=== PATIENT | male | born 1965 | race Caucasian/White ===

== ENCOUNTER 2019-07-08 17:01 | Inpatient (IN) ==
--- NOTE | 2019-07-08 17:26 | PROVIDER DOCUMENTATION ---
HPI-Respiratory General - General Chief Complaint: Shortness of Breath Stated Complaint: SOB Time Seen by Provider: 07/08/19 17:03 Source: patient, family Allergies/Adverse Reactions: Patient Allergies Allergy/AdvReac Type Severity Reaction Status Date / Time No Known Allergies Allergy Verified 01/19/17 04:01 Home Medications: Home Medication List Medication Instructions Recorded Confirmed Last Taken Type Amlodipine Besylate [Norvasc] 5 mg PO DAILY 04/06/14 07/08/19 01/18/17 History Lisinopril 5 mg PO DAILY 04/06/14 07/08/19 01/18/17 History Aspirin EC 81 mg PO DAILY 12/15/15 07/08/19 01/18/17 History Amiodarone [Cordarone] 200 mg PO DAILY 07/08/19 07/08/19 Unknown History Atorvastatin Calcium [Lipitor] 20 mg PO QHS 07/08/19 07/08/19 Unknown History Metoprolol [Lopressor] 50 mg PO BID 07/08/19 07/08/19 Unknown History Tramadol [Ultram] 50 mg PO QHS PRN 07/08/19 07/08/19 Unknown History - History of Present Illness-Resp Nature of Presenting Problem: 53 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 He reports recent 4 vessel CABG with porcine aortic valve replacement on 06/12/19 while in [place]. He reports he feels like " I cant take as deep a breath as normal". He denies CP, arm pain, fever, chills, cough, n/v/d, sweating. Quality of Pain: reports: none Severity in ED: reports: moderate Onset/Duration: reports: 1/2 hour ago Timing: reports: still present Context: reports: other (recent 4V CABG with porcine aortic valve replacement) Exposure: reports: unknown cause Cough Quality/Degree: reports: no cough Modifying Factors: worse with: exertion Associated Symptoms: reports: shortness of breath Similar Symptoms Previously?: No Recently seen or treated by another doctor?: Yes Review of Systems - Adult - REVIEW OF SYSTEMS - ADULT Constitutional: reports: no symptoms reported. denies: see HPI, chills, fever, fatique, night sweats, weight gain, weight loss, other Eyes: reports: no symptoms reported. denies: see HPI, discharge, dry eyes, decreased vision, blurred vision, double vision, eye pain, redness, other Ears, Nose, Mouth & Throat: reports: no symptoms reported. denies: see HPI, ear discharge, ear pain, hearing loss, tinnitus, epistaxis, sinus problem, nose guerline n, loose teeth, mouth/dental pain, mouth swelling, hoarseness, throat pain, throat swelling, other Cardiovascular: reports: see HPI, edema Respiratory: reports: see HPI, shortness of breath. denies: no symptoms reported, chronic cough, cough, dyspnea on exertion, excessive sputum production, hemoptysis, pleurisy, wheezing, other Gastrointestinal: reports: no symptoms reported. denies: see HPI, abdominal pain, hematemesis, constipation, diarrhea, difficulty swallowing, frequent heartburn, nausea, poor appetite, rectal bleeding, vomiting, other Genitourinary: reports: no symptoms reported. denies: see HPI, dysuria, discharge, frequency, flank pain, frequent UTI's, hematuria, hesitency, incontinence, urinary retention, urgency, other Musculoskeletal: reports: no symptoms reported. denies: see HPI, bone pain, back pain, frequent leg cramps, joint pain, joint swelling, muscle aches, muscle weakness, neck pain, other Integumentary: reports: no symptoms reported. denies: see HPI, hives, hair loss, itching, mole changes, nail changes, rash, skin sores/ulcer, skin thickening, other Neurological: reports: no symptoms reported. denies: see HPI, ataxia, dizziness/vertigo, headache/migraines, loss of balance, numbness, paresthesia, seizure, slurred speech, syncope, tremors, other Psychiatric: reports: no symptoms reported. denies: see HPI, anxiety, anti-depressant use, alcohol/drug dependence, depression, emotional problems, insomnia, panic attacks, suicidal thoughts, other Endocrine: reports: no symptoms reported. denies: see HPI, change in skin pigment, excessive sweating, goiter, cold intolerance, heat intolerance, increased hunger, increased thirst, polyuria, other Hematologic/Lymphatic: reports: no symptoms reported. denies: see HPI, blood clots, easy bruising, low blood count, lymphedema, prolonged bleeding, swollen lymph nodes, transfusions, other Allergic/Immunologic: reports: no symptoms reported. denies: see HPI, allergic reactions, allergic rhinitis, asthma, eczema, food allergy, frequent infections, hay fever, hives, positive PPD, urticaria, other Past History - Adult - PAST MEDICAL HISTORY-ADULT Review of Records: reports: Nursing Assessment Review, Social history reviewed & non-contributory. Major Childhood Illnesses: reports: denies history Cardiovascular: reports: HTN Respiratory: reports: sleep apnea Gastrointestinal: reports: GERD, other (hiatal hernia) Obstetrical/Gynecological: reports: denies history Genitourinary: reports: denies history Musculoskeletal: reports: denies history Neurological: reports: denies history Endocrine/Immune: reports: denies history Other Conditions: reports: other (gout) - PRIOR SURGERIES/PROCEDURES Surgical/Procedure History: reports: other (sacrum cycst) - IMMUNIZATION STATUS Childhood Immunizations: See Nurse Assessment Flu Vaccine: See Nurse Assessment - FAMILY HISTORY Family History: reviewed, not pertinent Physical Exam-General - PHYSICAL EXAM-ADULT Initial Vital Signs Reviewed: Yes - CONSTITUTIONAL General Appearance: alert, no apparent distress - EYES Eyes: PERRL/EOMI, pink conjunctivae - HEAD, EARS, NOSE, MOUTH & THROAT HENMT: normocephalic/atraumatic, moist mucous membranes, normal ENT inspection - NECK Neck: non-tender, full range of motion, supple. negative: carotid bruit - RESPIRATORY Respiratory: lungs clear, normal breath sounds, no pleuratic chest pain, no respiratory distress, no accessory muscle use, other (healing sternal incision present without redness drainage or S&S of infection). negative: accessory muscle use, wheezing - CARDIOVASCULAR Cardiovascular: normal peripheral pulses, regular rate, rhythm, no JVD, other (2/6 mumur heard best at the 2nd intercostal RSB). negative: no edema (+1 edema BLE), no murmur - GASTROINTESTINAL (ABDOMEN) Abdominal Exam: normal bowel sounds, non tender, soft, other (obese) - LYMPHATIC Lymphatic: no adenopathy - MUSCULOSKELETAL Back Exam: normal inspection, no CVA tenderness, no vertebral tenderness Extremity: normal range of motion, non-tender, normal gait, pedal edema (+1 BLE) Peripheral Pulses: radial (R): 2+, radial (L): 2+ - SKIN Integumentary: normal color, normal turgor, warm/dry - NEUROLOGIC Neurologic: grossly normal - PSYCHIATRIC Psych/Mental Status: normal mood/affect, oriented x 3 - HEART Score HEART Score: History: Moderately Suspicious HEART Score: ECG: Non-Specific Repolarization Disturbance/LBBB/PM HEART Score: Age: 45-65 Years HEART Score: Risk Factors for Atherosclerotic Disease: > or = 3 Risk Factors or History of Atherosclerotic Disease HEART Score: Troponin: < or = Normal Limit Total HEART Score:: 5 Progress - PLAN OF CARE/RESULTS Progress/Plan/Lab Results: Vital Signs - 8 hr 07/08/19 17:05 Temperature 98.0 F Pulse Rate 83 Respiratory Rate 22 Blood Pressure 145/73 O2 Sat by Pulse Oximetry 99 Laboratory Results - last 24 hr 07/08/19 07/08/19 07/08/19 17:41 17:41 17:41 WBC 6.37 RBC 3.90 L Hgb 10.1 L Hct 34.4 L MCV 88.2 MCH 25.9 L MCHC 29.4 L RDW Std Deviation 16.0 H Plt Count 285 MPV 10.5 H Immature Gran % (Auto) 0.3 Neut % (Auto) 69.1 Lymph % (Auto) 18.4 L [place] % (Auto) 9.1 Eos % (Auto) 2.5 Baso % (Auto) 0.6 Immature Gran # (Auto) 0.02 Neut # (Auto) 4.40 Lymph # (Auto) 1.17 L [place] # (Auto) 0.58 Eos # (Auto) 0.16 Baso # (Auto) 0.04 PT 15.7 INR 1.23 PTT (Actin FS) 31.4 Sodium 142 Potassium 4.5 Chloride 104 Carbon Dioxide 23 L Anion Gap 15 BUN 11 Creatinine 1.1 Estimated GFR/1.73 m2 > 60 BUN/Creatinine Ratio 10 Glucose 157 H Calculated Osmolality 286 Calcium 8.6 L Total Bilirubin 0.28 AST 19 ALT 18 Alkaline Phosphatase 120 Troponin T Win-A-Kvczbqoiosj Pept Total Protein 6.2 L Albumin 3.7 Globulin 2.5 Albumin/Globulin Ratio 1.5 07/08/19 07/08/19 17:41 17:41 WBC RBC Hgb Hct MCV MCH MCHC RDW Std Deviation Plt Count MPV Immature Gran % (Auto) Neut % (Auto) Lymph % (Auto) [place] % (Auto) Eos % (Auto) Baso % (Auto) Immature Gran # (Auto) Neut # (Auto) Lymph # (Auto) [place] # (Auto) Eos # (Auto) Baso # (Auto) PT INR PTT (Actin FS) Sodium Potassium Chloride Carbon Dioxide Anion Gap BUN Creatinine Estimated GFR/1.73 m2 BUN/Creatinine Ratio Glucose Calculated Osmolality Calcium Total Bilirubin AST ALT Alkaline Phosphatase Troponin T 0.031 Mcr-Q-Pbgypurplmg Pept 1089 H Total Protein Albumin Globulin Albumin/Globulin Ratio Orders Category Date Time Status cxr [CHEST-2 VIEWS] [RAD] Stat Exams 07/08/19 17:09 Completed CBC WITH ELECTRONIC DIFF [HEME] Stat Lab 07/08/19 17:41 Completed COMPREHENSIVE METABOLIC PANEL [CHEM] Stat Lab 07/08/19 17:41 Completed PROTIME WITH INR [COAG] Stat Lab 07/08/19 17:41 Completed PTT [COAG] Stat Lab 07/08/19 17:41 Completed TROPONIN T Stat Lab 07/08/19 17:41 Completed TROPONIN T Stat Lab 07/08/19 19:41 Uncollected bnp [PRO B-NATRIURETIC PEPTIDE] Stat Lab 07/08/19 17:41 Completed Furosemide [Lasix] Med 07/08/19 18:30 Discontinued 40 mg IV NOW ONE EKG [EKG] Stat Ther 07/08/19 17:08 Draft EKG [EKG] Stat Ther 07/08/19 19:41 Ordered 1825: d/w family new pulmonary edema. pt and family are in agreement with plan to admit for CP ruleout and diuresis. Will call cardiology to discuss and spoke with Esmer NAVARRETE hospitalist Result Diagrams: 07/08/19 17:41 07/08/19 17:41 - EKG 1 Time of EKG reading by physician:: 17:35 EKG Read and Signed by:: Rodolfo White EKG Interpretation (*Must complete 3 of following elements*): Abnormal Rate: 83 Rhythm: SR [place]: normal QRS: normal MI Interval: normal ST Wave: non-specific ST changes Prior EKG Comparison: changes noted (NONSPECEFIC ST CHANGES) - XRAY 1 XRAY Study: Chest Impression: Abnormal, See EMR Report (CHEST-2 VIEWS - 07/08/2019 INDICATION: SOB COMPARISON: 12/15/2015 FINDINGS: There are new sternotomy wires. There is cardiomegaly and mild pulmonary vascular congestion. There are trace pleural effusions. There are subtle increase interstitial markings in the lung bases which may represent mild pulmonary edema. IMPRESSION: Mild congestive heart failure. Electronically signed by Mathew Lima 07/08/2019 5:42 PM 07/08/191741 Interpreting Physician: Mathew Lima MD Dictated Date/Time: 07/08/191740) Comparison with other Films: changes noted - CONSULTS/PCP/HOSPITALIST Notification #1 *Consult/PCP/Hospitalist*: Dr. Liz paged at [phone] Time Discussed: 19:06 Consult Disposition: Admit (Admit with echo in AM, Serial Cardiac enzymes and 40mg lasix q12 hr) #2 Consult: Hospitalist paged at 1905 Departure - Departure Date of Disposition Decision: 07/08/19 Time of Disposition Decision: 19:12 DIAGNOSIS: CHF (congestive heart failure), Shortness of breath, Pulmonary edema Disposition: ADMITTED INPATIENT 09 Certified Medical Emergency: Emergent Condition: Fair Referrals and Follow-Ups: None,PCP [Primary Care Provider] - - Critical Care Note This patient required my direct & personal management of CC.: No Attestation - Physician/ TAMI Attestation Patient care was provided by Advanced Practice Provider:: Yes Advanced Practice Provider:: Bhumi White Advanced Practice Provider documentation review:: The Mid-level provider documentation, treatment plan and medical decision making was reviewed by the physician who agrees with all treatment and medical decision making by the [facility]. The physician spent face to face time with patient:: No Advanced Practice Provider documentation review:: Supervising physician onsite and consulted in the evaluation and care of this patient. The physician did not have a face to face encounter with the patient.
--- NOTE | 2019-07-08 17:44 | Diag Imaging Result Doc PS360 ---
CHEST-2 VIEWS - 07/08/2019 INDICATION: SOB COMPARISON: 12/15/2015 FINDINGS: There are new sternotomy wires. There is cardiomegaly and mild pulmonary vascular congestion. There are trace pleural effusions. There are subtle increase interstitial markings in the lung bases which may represent mild pulmonary edema. IMPRESSION: Mild congestive heart failure. Electronically signed by Mathew Lima 07/08/2019 5:42 PM
[2019-07-08 18:02] LABS: BASO# 0.04 X1000 (0.0-0.2); BASO% 0.6 % (0.0-0.8); EOS# 0.16 X1000 (0.0-0.7); EOS% 2.5 % (0.0-10.0); HEMATOCRIT 34.4 % (42.0-52.0); HEMOGLOBIN 10.1 g/dL (14.0-18.0); IMM GRAN# 0.02 X1000 (0.0-0.04); IMM GRAN% 0.3 % (0.0-0.5); LYMPH# 1.17 X1000 (1.2-3.4); LYMPH% 18.4 % (20.5-51.1); MCH 25.9 PG (27-31); MCHC 29.4 g/dL (33-37); MCV 88.2 FL (81-99); MONO# 0.58 X1000 (0.11-0.59); MONO% 9.1 % (1.7-9.3); MPV 10.5 FL (7.4-10.4); NEUT% 69.1 % (42.2-75.2); PLT 285 X1000 (130-400); WBC 6.37 X1000 (4.8-10.8)
[2019-07-08 18:16] LABS: AGAP 15; ALB/GLOB RATIO 1.5; ALBUMIN 3.7 g/dL (3.5-5.0); ALKALINE PHOSPHATASE 120 U/L (32-122); BUN 11 mg/dL (8-22); CALCIUM 8.6 mg/dL (8.8-10.2); CHLORIDE 104 mmol/L (98-107); COSMO 286; CREATININE 1.1 mg/dL (0.7-1.2); ESTIMATED GFR > 60; GLUCOSE 157 mg/dL (70-104); GOT 19 U/L (10-34); GPT 18 U/L (10-44); POTASSIUM 4.5 mmol/L (3.5-5.1); SODIUM 142 mmol/L (136-145); TCO2 23 mmol/L (25-35); TOTAL BILIRUBIN 0.28 mg/dL (0.20-1.00); TOTAL PROTEIN 6.2 g/dL (6.3-8.3)
--- NOTE | 2019-07-08 18:18 | EKG Report ---
Test Performed on : 07/08/2019 5:34:37 PM Test Reason : SOB Blood Pressure : / mmHG Vent. Rate : 083 BPM Atrial Rate : 083 BPM P-R Int : 184 ms QRS Dur : 106 ms QT Int : 398 ms P-R-T Axes : 032 031 087 degrees QTc Int : 467 ms Normal sinus rhythm. Cannot rule out Anterior infarct , age undetermined Abnormal ECG When compared with ECG of 19-JAN-2017 04:22, T wave inversion now evident in Anterior leads Unconfirmed Result
[2019-07-08 18:24] LABS: INR 1.23; PROTIME 15.7 Seconds (11.0-16.0); PTT 31.4 Seconds (22.3-41.8)
[2019-07-08] MEDS ORDERED: LASIX IV ONE (18:30)
[2019-07-09] MEDS: ULTRAM PO PRN ×2 (01:45→21:32)
--- NOTE | 2019-07-09 06:46 | HISTORY AND PHYSICAL ---
DATE: 07/09/2019 CHIEF COMPLAINT: Shortness of breath for about 2 to 3 days. HISTORY OF PRESENT ILLNESS: Mr. Tanvir Borden is a 53-year-old male, who has a history of coronary artery disease status post CABG on 06/12/2019. Also, he has a history of diabetes mellitus, hypertension, sleep apnea, gastroesophageal reflux disease. He presents to the hospital because of shortness of breath, which he describes as intermittent. It is made worse when he is supine, and he feels better when he is propped up on the bed. He denies any chest pain, wheezing. The patient reports having bilateral lower extremity swelling. When he presented to the hospital, his proBNP level was found to be raised at 1089. An x-ray of his chest showed mild CHF change. The patient was seen and evaluated in the ER. He has now been admitted to the floor for further management. PAST MEDICAL HISTORY: Coronary artery disease, borderline diabetes mellitus, hypertension, obstructive sleep apnea, gastroesophageal reflux disease, obesity and gout. PAST SURGICAL HISTORY: He has had CABG; this was done on 06/12/2019. Also cyst removal from anterior chest area. SOCIAL HISTORY: No history of cigarette smoking. No alcohol or drug use. ALLERGIES: No known drug allergies. FAMILY HISTORY: Positive for cancer, as well as coronary artery disease. MEDICATIONS: His medications include the followin. Amlodipine 5 mg p.o. once a day. 2. Lisinopril 5 mg p.o. daily. 3. Aspirin 81 mg p.o. daily. 4. Amiodarone 200 mg p.o. daily. 5. Atorvastatin 20 mg p.o. at bedtime. 6. Metoprolol 50 mg p.o. twice a day. 7. Tramadol 50 mg p.o. at bedtime p.r.n. REVIEW OF SYSTEMS: Constitutional: No fever. 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 Eyes: No blurry vision. ENT: Has some sinus problems. Cardiovascular: See history of present illness. Gastrointestinal: No nausea, vomiting, diarrhea. Respiratory: Has cough. : No dysuria. Dermatology: No skin lesions. Musculoskeletal: Has joint pains. Endocrinology: Has borderline diabetes, but no thyroid disease. Hematology: No bleeding problems. Psychiatric: No anxiety or depression. Allergy: No symptoms suggestive of allergic rhinitis. EXAMINATION: Vital Signs Are As Follows: Temperature 98.4 degrees, pulse 73, respirations 20, blood pressure is 135/75, oxygen saturation 100%. HEENT: Head is atraumatic, normocephalic. He is anicteric. Extraocular movements intact. No oral lesions. Neck: No lymphadenopathy or thyromegaly. Cardiovascular: S1, S2. No gallops, rubs, or murmurs. Respiratory system: Has evidence of good air entry bilaterally. The patient does have a midline surgical wound obviously from recent CABG. Abdomen: Soft, nontender. No masses felt. It is obese. Extremities: Patient does have 1+ edema in both lower extremities. Central nervous system: No obvious focal deficits noted. LABORATORY DATA: WBC is 6.37, hematocrit is 34.4, with a platelet count of 285. INR is 1.23. Sodium is 142, potassium 4.5, chloride is 104, bicarbonate 23. BUN is 11, creatinine is 1.1, glucose 157. ProBNP 1089 IMAGING STUDIES: Chest x-ray shows mild congestive heart failure. EKG shows a normal sinus rhythm with nonspecific ST changes. ASSESSMENT AND PLAN: 1. Acute congestive heart failure. We will maintain patient on diuretics. Monitor intakes and outputs, as well as daily weights. Obtain two-dimensional echocardiogram of the heart. We will maintain patient on HANNA inhibitor, as well as beta benedicto. The patient will need congestive heart failure education. 2. Diabetes mellitus. Monitor blood sugar levels. Place patient on sliding scale insulin. Check hemoglobin A1c level. 3. Hypertension. Continue current antihypertensive regimen. 4. Obstructive sleep apnea. The patient can use CPAP machine at night. 5. Gastroesophageal reflux disease. Maintain patient on proton pump inhibitor. 6. Anemia. Will check iron studies, B 12 as well as folate level. Stool for occult blood. 7. Deep vein thrombosis prophylaxis. Lovenox. 8. Gastrointestinal prophylaxis. Proton pump inhibitor. cc: Satya Seth MD
[2019-07-09] MEDS: HUMALOG SUBQ SCH ×4 (06:53→21:31)
[2019-07-09 07:58] LABS: AGAP 12; BUN 11 mg/dL (8-22); CALCIUM 8.8 mg/dL (8.8-10.2); CHLORIDE 101 mmol/L (98-107); CHOLESTEROL 96 mg/dL (0-200); COSMO 280; CREATININE 0.9 mg/dL (0.7-1.2); ESTIMATED GFR > 60; GLUCOSE 90 mg/dL (70-104); HDL 46 mg/dL (35-55); IRON SATURATION 10 %; MAGNESIUM 2.1 mg/dL (1.5-2.7); PHOSPHORUS 3.9 mg/dL (2.7-4.5); POTASSIUM 4.1 mmol/L (3.5-5.1); SODIUM 141 mmol/L (136-145); TCO2 28 mmol/L (25-35); TIBC 264 ug/dL; TOTAL IRON 27 ug/dL (53-167); TRIGLYCERIDES 107 mg/dL (39-160); UNBOUND IRON 237 ug/dL (112-346); VLDL 21 mg/dL
[2019-07-09 07:59] LABS: LDL 29 mg/dL
[2019-07-09 08:15] LABS: FERRITIN 189 ng/mL (30-400)
[2019-07-09 08:54] LABS: BASO# 0.04 X1000 (0.0-0.2); BASO% 0.5 % (0.0-0.8); EOS# 0.19 X1000 (0.0-0.7); EOS% 2.6 % (0.0-10.0); HEMATOCRIT 36.5 % (42.0-52.0); HEMOGLOBIN 10.5 g/dL (14.0-18.0); LYMPH# 1.21 X1000 (1.2-3.4); LYMPH% 16.6 % (20.5-51.1); MCH 25.5 PG (27-31); MCHC 28.8 g/dL (33-37); MCV 88.6 FL (81-99); MONO# 0.64 X1000 (0.11-0.59); MONO% 8.8 % (1.7-9.3); MPV 10.8 FL (7.4-10.4); NEUT# 5.21 X1000 (1.4-6.5); NEUT% 71.5 % (42.2-75.2); PLT 323 X1000 (130-400); RBC 4.12 XMIL (4.7-6.1); RDW 16.2 % (11.5-14.5); WBC 7.29 X1000 (4.8-10.8)
[2019-07-09] MEDS ORDERED: LOVENOX SUBQ SCH (09:00)
[2019-07-09] MEDS: LOVENOX SUBQ SCH (09:15)
[2019-07-09] MEDS: PRILOSEC PO SCH (09:15)
[2019-07-09] MEDS: PRINIVIL PO SCH (09:16)
[2019-07-09] MEDS: LOPRESSOR PO SCH ×2 (09:16→21:31)
[2019-07-09] MEDS: NORVASC PO SCH (09:16)
[2019-07-09] MEDS: ASPIRIN EC PO SCH (09:16)
[2019-07-09] MEDS: LASIX IV SCH ×2 (09:16→21:31)
[2019-07-09] MEDS: CORDARONE PO SCH (09:16)
[2019-07-09 10:26] LABS: BANDS 1 % (0-1); HYPOCHROM 2+; LYMPHS 20 % (21-51); MONO 3 % (1-9); SEGS 76 % (42-75)
[2019-07-09] MEDS: ANUSOL-HC CREAM PR SCH ×2 (13:45→21:31)
--- NOTE | 2019-07-09 14:24 | ECHO REPORT ---
ORDER DATE: 07/08/2019 INTERPRETING PHYSICIAN: Mak Liz MD. ECHOCARDIOGRAPHIC MEASUREMENTS: Technically suboptimal study. Very poor acoustic window. Measurements could not be accurately obtained. FINDINGS: 1. Aortic valve. Bioprosthetic valve in the aortic position was stable. 2. Pulmonic valve not well visualized. 3. Mitral valve was normal. 4. Tricuspid valve was normal. Peak velocity across the tricuspid valve was 2.5 m/sec. Pulmonary artery systolic pressure of 35 mmHg. 5. Peak velocity across the aortic valve was 2.9 m/sec with a mean gradient of 24 mmHg in keeping with bioprosthetic valve. There is no aortic regurgitation. 6. There is mild mitral regurgitation. 7. Optison was used to assess left ventricular systolic function. Normal left ventricular cavity size. Concentric left ventricular hypertrophy. Estimated ejection fraction of 65%. 8. There is no pericardial effusion or obvious intracardiac mass or thrombus. cc: MD Satya Maravilla MD
[2019-07-09] MEDS ORDERED: VENOFER 200 MG in NS 100 ML IV ONE (16:06)
[2019-07-09] MEDS: TYLENOL PO PRN (16:31)
--- NOTE | 2019-07-09 16:43 | PROGRESS NOTE ---
DATE: 07/09/2019 SUBJECTIVE: This morning, Mr. Borden refers to be doing a lot better. He is not on any oxygen. He said his breathing has significantly improved, saturating about 100% on room air. OBJECTIVE: General: Mr. Aguayo is a 53-year-old morbidly obese, gentleman. He is in bed, no distress. His BMI is 42.9. Chest: Good air entry bilaterally, I did not hear any crackles. Neck: Supple. There was no JVD. Cardiovascular: Regular rate and rhythm. No murmurs. Abdomen: Soft, distended but nontender. Bowel sounds present. Extremities: 1+ pedal edema. There are some chronic changes on the left lower extremity from stasis dermatopathy. LABORATORY STUDIES: CBC shows a normocytic anemia with hemoglobin of 10.5. WBC and platelet count is normal. Chemistry is within normal range. IMAGING STUDIES: Show a chest x-ray that revealed mild congestive heart failure. Echocardiogram shows an ejection fraction of 65%. There is a bioprosthetic aortic valve in good position with a velocity across the valve of 2.9. The mean gradient is 24. ASSESSMENT: 1. Dyspnea on presentation secondary to congestive heart failure improved. 2. History of coronary arthrosclerosis, status post coronary artery bypass graft. 3. Postoperative atrial fibrillation. 4. Bioprosthetic aortic valve replacement. 5. Morbid obesity with BMI of 42.9. 6. Severe obstructive sleep apnea. Patient is on CPAP at home. 7. Iron deficiency and folate deficiency. We will start replacement. 8. Mild left lower extremity swelling from stasis dermatopathy. cc: Chace Magallanes MD
--- NOTE | 2019-07-09 18:49 | CARDIOLOGY CONSULTATION ---
DATE: 07/09/2019 CHIEF COMPLAINT ON PRESENTATION: Shortness of breath for around two to three days. HISTORY OF PRESENT ILLNESS: Mr. Borden is a 53-year-old male with a history of coronary artery disease with bypass performed in late May 2019, in [place]. He was discharged home after around two weeks in [place], and sounds like he has had a relatively high sodium intake during that discharge time. In addition, he was discharged on 10 days of Lasix, having completed that course of medication last week on Saturday. He reports over the last two to three days, having issues with what sounds like orthopnea as well as increasing shortness of breath that became much worse yesterday evening. He denies any overt chest pain. He reports compliance with his medications otherwise. PAST MEDICAL HISTORY: 1. Significant for coronary artery disease with coronary artery bypass grafting. He had a coronary bypass performed on June 12. This was a 4-vessel procedure with BOB to the LAD, vein graft to an obtuse marginal, vein graft to a diagonal, and a vein graft to a PDA. 2. Aortic stenosis that sounds to have been moderate in nature. The echocardiogram suggested [id number] stenosis with a mean gradient of 27. Valve areas were anywhere from 1.8 to 2.1 on the echo done prior to the bypass. He subsequently had a 25 mm Avalus pericardial valve placed. 3. Morbid obesity. 4. Hypertension. 5. Glucose intolerance. 6. Obstructive sleep apnea. He is compliant with his CPAP. 7. Reflux disease. 8. Gout. SOCIAL HISTORY: He is . 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 No tobacco use. FAMILY HISTORY: Significant for some type of cancer as well as coronary artery disease. REVIEW OF SYSTEMS: A 10-system review of systems is negative, except for those things mentioned in HPI. PHYSICAL EXAMINATION: He is afebrile. Most recent temperature was 98.6 degrees. Heart rate 77, blood pressure 139/66.General: He is in no acute distress. HEENT: Oropharynx is moist. Poor dentition. Eye examination, pink conjunctivae, white sclerae. Neck: No obvious thyromegaly or thyroid tenderness. Cardiovascular: He sounds to be in a regular rate and rhythm. He has distant heart sounds. He has a well-healed midline sternotomy. He has mild asymmetric edema in the left lower extremity of around 1+. Extremities: Both extremities are warm and well perfused. Chest: Sounds clear with distant breath sounds. He has no increased work of breathing. Abdomen: Soft, nontender, nondistended. He has no obvious organomegaly. Skin: Warm and dry throughout without any rashes. Neurological: Moving all extremities well. He has no lateralizing deficits. PERTINENT DATA: His EKG reviewed by me, shows sinus rhythm with nonspecific ST-T changes. His echocardiogram showed a mean gradient of 24 across the bioprosthetic valve, EF 65%. His laboratory data demonstrated white count of 7.2, hematocrit 36, platelet count is 323,000. He did have a trace bandemia. Sodium is 141, potassium is 4.1, BUN 11, creatinine 0.9. His LDL is 29, his HDL is 46. His proBNP yesterday was 1089. His cardiac enzymes are negative. ASSESSMENT: Mr. Borden is a 53-year-old gentleman with bypass roughly one month ago, who presented for evaluation of shortness of breath. Findings appear consistent with an exacerbation of diastolic heart failure likely secondary to high sodium intake as well as recent discontinuation of Lasix. PLAN: At this point, I would recommend continuation of his diuretics. We will recheck labs in the morning. We will likely transition him over to oral Lasix at home. He has an appointment already set up with Dr. Naqvi in [place], and he can be seen by him for further evaluation and hopefully setting him up with cardiac rehab. He was noted to have aortic stenosis at the time of the bypass. He had a bioprosthetic aortic valve placed. This study is challenging here and he will likely need a reassessment of the aortic valve in the near future given the mean gradient that was identified across the valve. Given his body habitus, there may be a component of prosthetic patient mismatch. He had postoperative atrial fibrillation during the course of the examination and continues on his amiodarone. We will continue for the time being. He is not on anticoagulation. He is on aspirin. He was not discharged on anticoagulation at the time of his bypass. Hopefully, he can be discharged in the next 24 to 48 hours. He seems to have diuresed aggressively based on his report. We do not have a significant degree of input and output data. cc: Dean Gomez MD
[2019-07-09] MEDS ORDERED: LIPITOR PO SCH (21:00)
[2019-07-10] MEDS: PRILOSEC PO SCH (06:26)
[2019-07-10] MEDS: HUMALOG SUBQ SCH ×2 (06:27→10:49)
[2019-07-10] MEDS: TYLENOL PO PRN (06:31)
[2019-07-10 07:05] VITALS: BP 107/49
[2019-07-10 07:46] LABS: HEMOGLOBIN A1C 4.7 % (4.8-6.0)
[2019-07-10 08:09] LABS: AGAP 9; BUN 11 mg/dL (8-22); CALCIUM 9.1 mg/dL (8.8-10.2); CHLORIDE 97 mmol/L (98-107); COSMO 276; ESTIMATED GFR > 60; GLUCOSE 109 mg/dL (70-104); MAGNESIUM 2.1 mg/dL (1.5-2.7); POTASSIUM 4.3 mmol/L (3.5-5.1); SODIUM 138 mmol/L (136-145); TCO2 32 mmol/L (25-35)
[2019-07-10] MEDS ORDERED: FOLIC ACID PO SCH (09:00)
--- NOTE | 2019-07-10 09:39 | Diag Imaging Result Doc PS360 ---
EXAM: CHEST-2 VIEWS HISTORY: hypoxia TECHNIQUE: Two views COMPARISON: 07/08/2019 FINDINGS: The lungs are well expanded. There are small pleural effusions. The heart is mildly enlarged. There are sternal wires. No pulmonary edema. No consolidation. IMPRESSION: Cardiomegaly with small pleural effusions Electronically signed by Janes Greer 07/10/2019 9:37 AM
[2019-07-10] MEDS: LASIX IV SCH (09:48)
[2019-07-10] MEDS: PRINIVIL PO SCH (09:48)
[2019-07-10] MEDS: LOPRESSOR PO SCH (09:48)
[2019-07-10] MEDS: ASPIRIN EC PO SCH (09:48)
[2019-07-10] MEDS: NORVASC PO SCH (09:48)
[2019-07-10] MEDS: LOVENOX SUBQ SCH (09:49)
[2019-07-10] MEDS: CORDARONE PO SCH (09:49)
[2019-07-10] MEDS: ANUSOL-HC CREAM PR SCH (09:49)
--- NOTE | 2019-07-10 17:00 | DISCHARGE SUMMARY ---
ADMISSION DATE: 07/08/2019 DISCHARGE DATE: 07/10/2019 DISPOSITION: Home. FOLLOWUP: 1. Will be Torey Fair. 2. Dr. Gautam Naqvi. 3. Dr. Dean Gomez. CONSULTATION: Cardiology was consulted. Patient was seen by Dr. Dean Gomez. INVASIVE PROCEDURES: None. IMAGING STUDIES OF SIGNIFICANT: A chest x-ray did show mild congestive heart failure on admission. An echocardiogram shows an ejection fraction of 65% of the 25 mmHg of the mean gradient across the aortic valve which is a bioprosthetic valve, pro B dropped from 1089 to 545. ADMISSION DIAGNOSIS: 1. Acute congestive heart failure. 2. Diabetes mellitus. 3. Hypertension. 4. Obstructive sleep apnea. DIAGNOSIS AT THE TIME OF DISCHARGE: 1. Dyspnea on admission due to congestive heart failure. 2. History of coronary artery sclerosis status post coronary artery bypass graft. 3. Postoperative atrial fibrillation. 4. Bioprosthetic aortic valve replacement. 5. Morbid obesity with body mass index of 42.9. 6. Severe obstructive sleep apnea patient uses CPAP at home. 7. Iron and folate deficiencies. 8. Left lower extremity swelling from chronic venous insufficiency. 9. Diabetes mellitus. 10. Hypertension. DISCHARGE MEDICATIONS: 1. Lisinopril 5 mg p.o. at bedtime. 2. Amlodipine 5 mg p.o. at bedtime. 3. Aspirin 81 mg p.o. daily. 4. Atorvastatin 20 mg p.o. at bedtime. 5. Motrin 600 mg p.o. q.6. 6. Amiodarone 200 mg p.o. daily. 7. Metoprolol 50 mg b.i.d. 8. Tramadol 50 mg p.o. at bedtime. 9. Tamsulosin 0.4 p.o. at bedtime. 10. Omeprazole 40 mg p.o. at bedtime. NEW MEDICATIONS PRESCRIBED: 1. Folic acid 1 mg p.o. daily. 2. Furosemide 40 mg p.o. daily. PRESENTING COMPLAINT: Shortness of breath. HISTORY OF PRESENT COMPLAINT: Mr. Borden is a 53-year-old gentleman who had CABG almost about a month ago in [place], comes in to the emergency room because of acute onset of shortness of breath. The patient was evaluated including a chest x-ray which reveals congestive signs. Pro B had gone up to 1089. He was admitted for acute congestive heart failure. HOSPITAL COURSE: Mr. Borden was admitted to the medical floor was started on IV diuretic therapy. He did diurese very adequately during the short hospital course, he became negative balance for a total of 815. His symptoms got remarkably improved, a pro B repeat came the back to 545. Patient had an echocardiogram and was evaluated by Cardiology, this morning Mr. Borden refers to feel much much better completely asymptomatic, we think he is okay for discharge. He is going to follow up with his primary care as well as his certified travel counselor out of town. Also he has been evaluated by Cardiology and they are in agreement for him to be discharged. All the discharge instructions have been discussed with him. We have notify Mr. Borden that we started him on low-dose diuretic therapy at least for the time being until he gets to see his certified travel counselor/primary care. TIME SPENT: 38 minutes. cc: Chace Magallanes MD MTDD
--- NOTE | 2019-07-11 12:23 | Extremity Venous Study ---
PROCEDURE NAME: Venous U/S Bilateral Legs - 07/09/2019 REFERRING PHYSICIAN: Vera. INTERPRETING PHYSICIAN: Dr. White. ROCK CONTRACTOR: Eris. The patient has had coronary bypass and valve replacement in late May and left greater saphenous vein was harvested. Bilateral lower extremity venous images accomplished. The common femoral, superficial femoral, deep femoral, popliteal, posterior tibial, peroneal, and greater saphenous vein is imaged except on the left where it was harvested. The Doppler is used to evaluate the veins for spontaneity, phasicity, respiratory excursion, distal augmentation. All veins are compressible. No intraluminal clot is seen. Reflux noted on the left common femoral vein. INTERPRETATION: No evidence of deep or superficial venous thrombosis in either lower extremity veins identified. The left greater saphenous vein has been harvested. Some reflux noted in the left common femoral vein. cc: MD Jojo Kathleen PA
== END 2019-07-10 15:08 | disposition home or self-care (01) ==
LOC: ED 17:01 → SUATTDRO 22:27 → 3N 22:27
PROVIDERS: ATTEND Internal Medicine

== ENCOUNTER 2019-07-24 22:07 | Observation (INO) ==
--- NOTE | 2019-07-24 23:23 | EKG Report ---
Test Performed on : 07/24/2019 10:18:47 PM Test Reason : SOB Blood Pressure : / mmHG Vent. Rate : 084 BPM Atrial Rate : 084 BPM P-R Int : 188 ms QRS Dur : 110 ms QT Int : 378 ms P-R-T Axes : 030 029 065 degrees QTc Int : 446 ms Normal sinus rhythm. Cannot rule out Anterior infarct (cited on or before 08-JUL-2019) Abnormal ECG When compared with ECG of 12-JUL-2019 11:55, (Unconfirmed) No significant change was found Unconfirmed Result
[2019-07-25] MEDS ORDERED: ASPIRIN PO ONE (00:12)
[2019-07-25 00:32] LABS: BASO# 0.05 X1000 (0.0-0.2); BASO% 0.5 % (0.0-0.8); EOS# 0.12 X1000 (0.0-0.7); EOS% 1.3 % (0.0-10.0); HEMATOCRIT 39.8 % (42.0-52.0); IMM GRAN# 0.02 X1000 (0.0-0.04); IMM GRAN% 0.2 % (0.0-0.5); LYMPH# 1.69 X1000 (1.2-3.4); LYMPH% 17.9 % (20.5-51.1); MCH 25.4 PG (27-31); MCHC 30.2 g/dL (33-37); MCV 84.1 FL (81-99); MONO# 0.71 X1000 (0.11-0.59); MONO% 7.5 % (1.7-9.3); MPV 11.6 FL (7.4-10.4); NEUT# 6.83 X1000 (1.4-6.5); NEUT% 72.6 % (42.2-75.2); PLT 338 X1000 (130-400); RBC 4.73 XMIL (4.7-6.1); RDW 15.5 % (11.5-14.5); WBC 9.42 X1000 (4.8-10.8)
[2019-07-25 00:41] LABS: INR 1.2; PROTIME 15.4 Seconds (11.0-16.0)
[2019-07-25 00:42] LABS: PTT 31.6 Seconds (22.3-41.8)
--- NOTE | 2019-07-25 00:43 | PROVIDER DOCUMENTATION ---
HPI-General Adult - General Chief Complaint: Shortness of Breath Stated Complaint: TROUBLE BREATHING Time Seen by Provider: 07/25/19 00:21 Source: patient, family Allergies/Adverse Reactions: Patient Allergies Allergy/AdvReac Type Severity Reaction Status Date / Time No Known Allergies Allergy Verified 01/19/17 04:01 Home Medications: Home Medication List Medication Instructions Recorded Confirmed Last Taken Type Lisinopril 5 mg PO HS 04/06/14 07/24/19 01/18/17 History Aspirin EC 81 mg PO DAILY 12/15/15 07/24/19 01/18/17 History Amiodarone [Cordarone] 200 mg PO DAILY 07/08/19 07/24/19 Unknown History Atorvastatin Calcium [Lipitor] 20 mg PO QHS 07/08/19 07/24/19 Unknown History Ibuprofen [Motrin] 600 mg PO Q6H PRN PRN 07/08/19 07/24/19 Unknown History Metoprolol [Lopressor] 50 mg PO BID 07/08/19 07/24/19 Unknown History Tamsulosin [Flomax] 0.4 mg PO QHS 07/08/19 07/24/19 07/07/19 21:00 History Tramadol [Ultram] 50 mg PO QHS PRN 07/08/19 07/24/19 Unknown History Folic Acid 1 mg PO DAILY #120 tab 07/10/19 07/24/19 Unknown Rx Furosemide [Lasix] 40 mg PO DAILY #30 tab 07/10/19 07/24/19 Unknown Rx Esomeprazole [Nexium] 40 mg PO DAILY 07/12/19 07/24/19 Unknown History Testosterone Cypionate 60 mg IM DIRECTED 07/12/19 07/24/19 Unknown History - History of Present Illness -Gen Adult Nature of Presenting Problems: 53yo male presents with CC of shortness of breath. The patient reports that since yesterday he has been having difficulty with breathing. The patient reports that his symptoms are greatly worsened by laying flat, and the patient has been having to sleep in a recliner. The patient reports that he has been taking his lasix, and he denies any swelling, and reports that his weights have been consistent. The patient denies fevers. The patient does report a cough. The patient reports some chest wall tenderness due to recent open heart surgery last month. Onset/Duration: reports: other (yesterday) Timing: reports: still present Context/Activities at Onset: reports: none, other (currently taking lasix and monitoring sodium intake) Modifying Factors: worse with: lying down Associated Symptoms: reports: chest pain (mild pain with palpation or cough), cough, shortness of breath. denies: fever/chills, swelling/mass in abdomen Review of Systems - Adult - REVIEW OF SYSTEMS - ADULT Constitutional: reports: no symptoms reported. denies: fever Eyes: reports: no symptoms reported. denies: eye pain Ears, Nose, Mouth & Throat: reports: no symptoms reported. denies: throat pain Cardiovascular: reports: chest pain, orthopnea Respiratory: reports: cough, shortness of breath Gastrointestinal: reports: no symptoms reported. denies: abdominal pain Genitourinary: reports: no symptoms reported. denies: flank pain Musculoskeletal: reports: no symptoms reported Integumentary: reports: no symptoms reported Neurological: reports: no symptoms reported. denies: headache/migraines Psychiatric: reports: no symptoms reported Endocrine: reports: no symptoms reported Hematologic/Lymphatic: reports: no symptoms reported Allergic/Immunologic: reports: no symptoms reported Past History - Adult - PAST MEDICAL HISTORY-ADULT Review of Records: reports: Old Records Reviewed Major Childhood Illnesses: reports: denies history Cardiovascular: reports: cardiac disease, CAD, HTN, heart valve problem Respiratory: reports: sleep apnea Gastrointestinal: reports: GERD, other (hiatal hernia) Obstetrical/Gynecological: reports: denies history Genitourinary: reports: denies history Musculoskeletal: reports: denies history Neurological: reports: denies history Endocrine/Immune: reports: denies history Other Conditions: reports: other (gout) - PRIOR SURGERIES/PROCEDURES Surgical/Procedure History: reports: other (sacrum cycst) - IMMUNIZATION STATUS Childhood Immunizations: See Nurse Assessment Flu Vaccine: See Nurse Assessment - FAMILY HISTORY Family History: reviewed, not pertinent Physical Exam-General - PHYSICAL EXAM-ADULT Initial Vital Signs Reviewed: Yes - CONSTITUTIONAL General Appearance: appears well, alert, no apparent distress - EYES Eyes: negative: conjuctival exudate, photophobia, sclera injected - HEAD, EARS, NOSE, MOUTH & THROAT HENMT: normocephalic/atraumatic, moist mucous membranes, pharynx normal. negative: hearing deficit, pharyngeal erythema - NECK Neck: non-tender, supple - RESPIRATORY Respiratory: no respiratory distress, rales (mild LLL) - CARDIOVASCULAR Cardiovascular: regular rate, rhythm, systolic murmur. negative: no edema (trace bilateral LE edema) - GASTROINTESTINAL (ABDOMEN) Abdominal Exam: non tender, soft, distended (mild) - MUSCULOSKELETAL Extremity: non-tender, swelling (trace) - SKIN Integumentary: normal color, warm/dry - NEUROLOGIC Neurologic: grossly normal - PSYCHIATRIC Psych/Mental Status: normal mood/affect, normal thought content, normal thought process Progress - PLAN OF CARE/RESULTS Progress/Plan/Lab Results: Vital Signs - 8 hr 07/24/19 22:19 Temperature 97.8 F Pulse Rate 82 Respiratory Rate 18 Blood Pressure 144/75 O2 Sat by Pulse Oximetry 96 Laboratory Results - last 24 hr 07/24/19 22:37 WBC 9.42 RBC 4.73 Hgb 12.0 L Hct 39.8 L MCV 84.1 MCH 25.4 L MCHC 30.2 L RDW Std Deviation 15.5 H Plt Count 338 MPV 11.6 H Immature Gran % (Auto) 0.2 Neut % (Auto) 72.6 Lymph % (Auto) 17.9 L [place] % (Auto) 7.5 Eos % (Auto) 1.3 Baso % (Auto) 0.5 Immature Gran # (Auto) 0.02 Neut # (Auto) 6.83 H Lymph # (Auto) 1.69 [place] # (Auto) 0.71 H Eos # (Auto) 0.12 Baso # (Auto) 0.05 Orders Category Date Time Status Cardiac Monitoring DIRECTED Care 07/25/19 00:13 Active Oxygen Therapy- ED Nursing DIRECTED Care 07/25/19 00:13 Active Saline Loc NOW Care 07/25/19 00:13 Active CHEST-2 VIEWS [RAD] Stat Exams 07/25/19 00:13 Ordered CBC WITH ELECTRONIC DIFF [HEME] Stat Lab 07/25/19 00:14 Completed CK PROFILE [SP CHEM] Stat Lab 07/25/19 00:14 Received COMPREHENSIVE METABOLIC PANEL [CHEM] Stat Lab 07/25/19 00:14 Received PRO B-NATRIURETIC PEPTIDE Stat Lab 07/25/19 00:14 Received PROTIME WITH INR [COAG] Stat Lab 07/25/19 00:14 Received PTT [COAG] Stat Lab 07/25/19 00:14 Received TROPONIN T HIGH SENSITIVITY Stat Lab 07/25/19 00:14 Received Aspirin Med 07/25/19 00:12 Discontinued 325 mg PO NOW ONE CP/SOB/Palp >45 yrs of Age Stat Oth 07/25/19 00:12 Ordered EKG [EKG] Stat Ther 07/24/19 22:10 Draft Result Diagrams: 07/24/19 22:37 07/24/19 22:37 - REASSESSMENT Reassessment #1 Status: other (Patient labs with BNP only at ~400. CXR with small pleural effusion. Troponin mildly elevated at 28. The patient reports that his positional shortness of breath is significant. Given recent CABG (5wks) as well as mildly elevated troponin, will plan for admission with repeat ECHO to ensure not pericardial effusion and to trend cardiac enzymes. Hospitalist team paged.) Reassessment #2 Status: other (Discussed with the hospitalist team who will see the patient.) Departure - Departure Date of Disposition Decision: 07/25/19 Time of Disposition Decision: 02:21 DIAGNOSIS: Acute dyspnea Chest pain Qualifiers: Chest pain type: unspecified Qualified Code(s): R07.9 - Chest pain, unspecified Disposition: ADMITTED INPATIENT 09 Certified Medical Emergency: Emergent Condition: Fair Referrals and Follow-Ups: Torey Fair [Primary Care Provider] - - Critical Care Note This patient required my direct & personal management of CC.: No Attestation - Physician/ TAMI Attestation Patient care was provided by Advanced Practice Provider:: No The physician spent face to face time with patient:: Yes Advanced Practice Provider documentation review:: Supervising physician onsite and consulted in the evaluation and care of this patient. The physician did have a face to face encounter with the patient.
[2019-07-25 00:58] LABS: AGAP 18; ALB/GLOB RATIO 1.4; ALBUMIN 4.4 g/dL (3.5-5.0); ALKALINE PHOSPHATASE 115 U/L (32-122); BUN 17 mg/dL (8-22); CALCIUM 9.2 mg/dL (8.8-10.2); CHLORIDE 100 mmol/L (98-107); CK PROFILE 144 U/L (24-204); COSMO 285; CREATININE 1.1 mg/dL (0.7-1.2); ESTIMATED GFR > 60; GLUCOSE 109 mg/dL (70-104); GOT 23 U/L (10-34); GPT 18 U/L (10-44); POTASSIUM 4.5 mmol/L (3.5-5.1); SODIUM 142 mmol/L (136-145); TCO2 24 mmol/L (25-35); TOTAL BILIRUBIN 0.27 mg/dL (0.20-1.00); TOTAL PROTEIN 7.5 g/dL (6.3-8.3)
[2019-07-25] MEDS ORDERED: LASIX IV ONE (02:53)
[2019-07-25] MEDS ORDERED: ZOFRAN IV PRN (03:59)
[2019-07-25] MEDS ORDERED: LOVENOX SUBQ SCH (03:59)
[2019-07-25] MEDS ORDERED: TYLENOL PO PRN (03:59)
[2019-07-25] MEDS ORDERED: ULTRAM PO PRN (03:59)
--- NOTE | 2019-07-25 08:46 | Diag Imaging Result Doc PS360 ---
EXAM: CHEST-2 VIEWS INDICATION: cp TECHNIQUE: 2 views COMPARISON: 07/12/2019 FINDINGS: The lungs are grossly clear. Small pleural effusions bilaterally, larger on the left, are essentially unchanged. There is no evidence of pneumothorax. There is stable mild cardiomegaly and CABG changes. Central vasculature is unremarkable. IMPRESSION: Stable small effusions and mild cardiomegaly. Electronically signed by Orlando Cedeno 07/25/2019 8:44 AM
[2019-07-25] MEDS: FOLIC ACID PO SCH (09:08)
[2019-07-25] MEDS: ASPIRIN EC PO SCH (09:08)
[2019-07-25] MEDS: CORDARONE PO SCH (09:08)
[2019-07-25] MEDS: LOPRESSOR PO SCH ×2 (09:08→20:34)
[2019-07-25] MEDS: PRILOSEC PO SCH (09:10)
[2019-07-25] MEDS ORDERED: LASIX IV SCH (15:00)
--- NOTE | 2019-07-25 16:30 | Diag Imaging Result Doc PS360 ---
EXAM: CHEST-2 VIEWS INDICATION: CHF TECHNIQUE: 4 views COMPARISON: 07/25/2019 FINDINGS: The lungs remain grossly clear. There is no discrete pleural fluid collection or pneumothorax. There is stable cardiomegaly. IMPRESSION: Stable chest. Electronically signed by Orlando Cedeno 07/25/2019 4:28 PM
--- NOTE | 2019-07-25 20:32 | PROGRESS NOTE ---
DATE: 07/25/2019 SUBJECTIVE: Today, Mr. Borden refers to be doing well. He was actually sitting up, eating his lunch. He said he feels great and that his shortness of breath has significantly improved. OBJECTIVE: Vital signs: Blood pressure is 115/67, pulse of 73, respiration is 16, temperature is 98.0 degrees. Patient is saturating 100%. General: Mr. Borden is a 53-year-old, gentleman. He was sitting up, eating his lunch. No distress. HEENT: Mucosa is pink and moist. Anicteric, acyanotic. Neck: Supple. Chest: Good air entry bilaterally. No crepitations. Cardiovascular: Regular rate and rhythm. There are no murmurs, no rubs, no gallops. Gastrointestinal: Abdomen is soft, distended, but nontender. Bowel sounds present. Extremities: Trace pedal edema with some chronic changes in the left lower extremity from stasis dermatopathy. LABORATORY AND DIAGNOSTIC DATA: Reviewed. Patient's ProBNP is actually lower than his discharge ProBNP the last time he was here. Chest x-ray shows stable small effusions and mild cardiomegaly. ASSESSMENT: 1. Dyspnea on presentation secondary to congestive heart failure with preserved ejection fraction. The patient was given Lasix on admission and this morning he feels a whole lot better. 2. History of coronary artery disease, status post coronary artery bypass graft. 3. Postoperative atrial fibrillation. 4. Bioprosthetic aortic valve replacement. 5. Morbid obesity with body mass index of 43.4. 6. Severe obstructive sleep apnea. 7. Mild concentric hypertrophic cardiomyopathy. PLAN: In general, Mr. Borden is doing well. It seems like his shortness of breath has significantly improved. As I said, his ProBNP is actually lower than his discharge ProBNP the last time. We are going to wait for Cardiology to evaluate him and then go from there. cc: Chace Magallanes MD
[2019-07-25] MEDS ORDERED: PRINIVIL PO SCH (21:00)
[2019-07-25] MEDS ORDERED: LIPITOR PO SCH (21:00)
[2019-07-25] MEDS ORDERED: FLOMAX PO SCH (21:00)
--- NOTE | 2019-07-26 02:36 | CARDIOLOGY CONSULTATION ---
DATE: 07/25/2019 CARDIOLOGY CONSULTATION REASON FOR CONSULTATION: Cardiology was admitted consulted for coronary artery disease, shortness of breath. HISTORY OF PRESENT ILLNESS: Mr. Borden is a 53-year-old, gentleman who was recently admitted at [facility], was given IV diuretics and subsequently discharged home. He followed up with his rn documentation specialist in [place] and was taking Lasix 40 mg a day and 80 mg on alternate days. He saw his family physician in [place] and had decreased his Lasix to 40 mg a day. He is admitted with increasing shortness of breath. Denies any chest pain. There is no palpitations, there is no dizziness or syncope. He has had extensive cardiac history, as below. Has had undergone coronary artery bypass grafting and aortic valve replacement recently. REVIEW OF SYSTEMS: A 14-point review of system was done. Gastrointestinal System: There is no history of nausea, vomiting, diarrhea. There is no history of hematemesis or melena. Central nervous system: No focal weakness to suggest a CVA, TIA. Genitourinary System: There is no dysuria or hematuria. PAST MEDICAL HISTORY: 1. Coronary artery disease, status post coronary artery bypass grafting on June 12, 2019 in [place], he had BOB to LAD, saphenous vein graft to obtuse marginal artery, saphenous vein graft to diagonal, saphenous vein graft to PDA. The patient had a 25 mm pericardial valve replaced at the same time. 2. Postoperative atrial fibrillation noted. 3. Morbid obesity. 4. Hypertension. 5. Glucose intolerance. 6. Obstructive sleep apnea. 7. Gastroesophageal reflux disease. 8. Gout. SOCIAL HISTORY: He is . 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 No tobacco abuse. PHYSICAL EXAMINATION: Vital signs: Blood pressure 105/54. Cardiovascular System: Normal jugular venous pressure. There is no thyromegaly. No carotid bruit. First and second heart sounds were heard. There was no S3 gallop. Respiratory System: Normal air entry. There is no crepitations or rhonchi. Abdomen: Soft, nontender. There was no guarding or rigidity. Bowel sounds were heard. Central nervous system: Alert and was moving all 4 extremities. Extremities: Revealed no pedal edema. HEENT: Atraumatic, normocephalic. Pupils were equal and reacting to light. HOME MEDICATIONS: 1. Atorvastatin 20. 2. Amiodarone 200 mg a day. 3. Aspirin 81 mg a day. 4. Lisinopril 5 mg a day. 5. Metoprolol 50 mg b.i.d. 6. Lasix 40 mg a day. LABORATORY EXAMINATION: Revealed sodium 142, potassium 4.5, BUN 17, creatinine 1.1. Troponin-T high sensitivity were negative. ProBNP 475. ASSESSMENT AND PLAN: Mr. Tanvir Borden is a 53-year-old, gentleman with history of coronary artery disease, coronary artery bypass grafting, obesity, aortic valve replacement, is admitted with increasing shortness of breath. He was he admitted here recently, has followed up with his rn documentation specialist in [place] and his family physician in [place]. Would recommend increasing the dose of Lasix. Would recommend discharging home on Lasix 60 mg a day, he was taking 40 mg and alternating with 80 mg every other day, which was decreased to 40 mg. He can follow up with his primary physician, he has an appointment to see them shortly. Cardiac standpoint, he had atrial fibrillation postop, he is in sinus rhythm. Continue with amiodarone. He is on beta-blockers and HANNA inhibitors and, in addition to aspirin, I have not made any changes. Thank you for the consult. We will follow hospital course. cc: Mak Liz MD
[2019-07-26] MEDS: PRILOSEC PO SCH (06:25)
[2019-07-26 07:32] LABS: BASO# 0.06 X1000 (0.0-0.2); BASO% 0.7 % (0.0-0.8); EOS# 0.15 X1000 (0.0-0.7); EOS% 1.8 % (0.0-10.0); HEMATOCRIT 41.4 % (42.0-52.0); HEMOGLOBIN 12.4 g/dL (14.0-18.0); IMM GRAN# 0.02 X1000 (0.0-0.04); IMM GRAN% 0.2 % (0.0-0.5); MCH 25.4 PG (27-31); MCV 84.7 FL (81-99); MONO# 0.74 X1000 (0.11-0.59); MONO% 8.7 % (1.7-9.3); NEUT# 5.83 X1000 (1.4-6.5); NEUT% 68.6 % (42.2-75.2); PLT 341 X1000 (130-400); RBC 4.89 XMIL (4.7-6.1); RDW 15.6 % (11.5-14.5)
[2019-07-26 07:59] LABS: AGAP 12; BUN 16 mg/dL (8-22); CHLORIDE 99 mmol/L (98-107); COSMO 280; CREATININE 1.2 mg/dL (0.7-1.2); ESTIMATED GFR > 60; GLUCOSE 92 mg/dL (70-104); MAGNESIUM 2.3 mg/dL (1.5-2.7); POTASSIUM 3.9 mmol/L (3.5-5.1); SODIUM 140 mmol/L (136-145); TCO2 29 mmol/L (25-35)
[2019-07-26 08:08] VITALS: BP 117/64
[2019-07-26] MEDS: FOLIC ACID PO SCH (10:14)
[2019-07-26] MEDS: ASPIRIN EC PO SCH (10:15)
[2019-07-26] MEDS: LOPRESSOR PO SCH (10:15)
[2019-07-26] MEDS: CORDARONE PO SCH (10:15)
--- NOTE | 2019-07-26 12:42 | HISTORY AND PHYSICAL ---
REASON FOR ADMISSION: Two-day history of worsening shortness of breath. HISTORY OF PRESENT ILLNESS: Mr. Tanvir Borden is a 53-year-old white male who underwent CABG on 06/12/2019 in [place]. He has a past medical history of diabetes, hypertension, sleep apnea, reflux disease, hyperlipidemia. He was readmitted last year at [facility], a few weeks ago, for CHF. He had his medications modified and changed and sent home. He said he was doing well up until a few days after discharge, start having some shortness of breath, came back to the ER and they told him to take his Lasix 2 tablets alternating with 1 tablet each day. He said for the 1st week of doing that, his symptoms improved significantly. He went to see his family physician, I believe it is Dr. Fair in [place], and was told to resume his previous dose of 1 tablet a day. Over the course of the last few days, he says, his breathing has gotten worse. He has been experiencing a lot of orthopnea, PND over the last 2 days. No leg swelling. No chest pain. No palpitations, lightheadedness, or any other cardiorespiratory complaints, cough, fever, or chills. No GI or complaints. No focal neurological complaints. REVIEW OF SYSTEMS: Other than mild musculoskeletal chest pain from the surgical site, he has no other complaints. SOCIAL HISTORY: Does not smoke, drink, or use drugs. 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 ALLERGIES: No known allergies. HOME MEDICATIONS: He is on Flomax 0.4 mg at bedtime, Lipitor 20 mg at bedtime, Ultram 50 mg at bedtime, aspirin 81 mg daily, amiodarone 200 mg daily, lisinopril 5 mg at bedtime, Lopressor 50 mg b.i.d., Motrin 600 mg q.6 hours p.r.n., Nexium 40 mg daily, testosterone 60 mg IM, as directed, folic acid 1 mg daily, Lasix 40 mg daily. SURGICAL HISTORY: He has had bypass surgery. FAMILY HISTORY: Notable for heart disease, coronary artery disease. LABORATORY WORK: White count 9000, hemoglobin and hematocrit 12 and 39, platelets 338,000, normal differential. Troponin is 25, pretty much unchanged from the previous one that was 24. ProBNP is 475. PT and PTT is normal. Chest x-ray shows borderline cardiomegaly with increased vascular markings. EXAMINATION: General: A pleasant, morbidly obese, man. Vital signs: Blood pressure is 144/75, heart rate 82, respiration rate 18, temperature is 97.8, he is 96% on room air. General Appearance: He is alert and oriented to person, time with normal mood and affect. HEENT: Head is normocephalic, atraumatic. Eyes: STEVE, EOMI. He is anicteric, not pale. ENT: Oropharynx exam is grossly normal. Neck: Short and thick. No JVD or carotid bruit could be appreciated. Chest: Clear when auscultated with decreased air entry in both lung shay. Cardiovascular: First, 2nd and 3rd heart sounds heard. No murmurs appreciated. Rhythm is regular. Abdomen: Protuberant, soft, nontender. No organomegaly. Bowel sounds hypoactive. Rectal: Deferred at this time. Extremities: No edema, clubbing or cyanosis. Good distal pulse volumes distally, symmetrical and regular. Neurological: No gross focal motor deficits seen. Skin: Intact with an almost completely healed midsternal scar. Musculoskeletal: Grossly normal. ASSESSMENT: 1. Acute diastolic heart failure. 2. Coronary artery disease. 3. Hyperlipidemia. 4. Hypertension. 5. Type 2 diabetes. 6. Obstructive sleep apnea. 7. Reflux disease. PLAN: Based on patient's history and exam, findings are consistent with congestive heart failure, albeit a mild exacerbation. Still, the patient should stop taking NSAIDs, which he says he is not taking often, but still could attenuate the diuretic effect of Lasix. Instead, the patient is taking 40 mg. I recommended that when he is discharged, he should be put on a new dose of 60 mg daily, as he did very well when he was taking 80 alternating with 40 mg a few weeks ago. We will consult Cardiology to get patient established locally, since currently he is seeing a informatics nurse in [place] and prefers to be local. We will give patient IV push Lasix now and 1 more probably later in the day. Check the x-ray later this evening and if subjectively and objectively patient feels better or looks better, he can be discharged, hopefully, this evening or at the very latest tomorrow morning. cc: Emilia Villanueva MD
--- NOTE | 2019-07-27 08:28 | DISCHARGE SUMMARY ---
ADMISSION DATE: 07/25/2019 DISCHARGE DATE: 07/26/2019 DISPOSITION: Home. FOLLOWUP: 1. Torey Fair. 2. Dr. Gautam Naqvi. 3. Dr. Dean Gomez. CONSULTATIONS DURING THIS ADMISSION: Cardiology was consulted. Patient was seen by Dr. Liz. INVASIVE PROCEDURES DONE DURING THIS ADMISSION: None. IMAGING STUDIES OF SIGNIFICANCE: Chest x-ray showed stable small effusions and cardiomegaly. A repeat x-ray continues to be stable. ADMISSION DIAGNOSES: 1. Acute diastolic heart failure. 2. Coronary artery disease. 3. Dyslipidemia. 4. Obstructive sleep apnea. 5. Reflux esophagitis. DIAGNOSES AT THE TIME OF DISCHARGE: 1. Acute on chronic diastolic heart failure. 2. Dyspnea on presentation secondary to #1. 3. Postoperative atrial fibrillation. 4. Bioprosthetic aortic valve replacement. 5. History of coronary artery disease, status post coronary artery bypass graft. 6. Severe obstructive sleep apnea. Patient uses CPAP at home. 7. Morbid obesity with body mass index of 43.4. 8. Diabetes mellitus. 9. Hypertension. DISCHARGE MEDICATIONS: 1. Lisinopril 5 mg p.o. at bedtime. 2. Aspirin 81 mg p.o. daily. 3. Atorvastatin 20 mg p.o. at bedtime. 4. Amiodarone 200 mg p.o. daily. 5. Metoprolol 50 mg b.i.d. 6. Tamsulosin 0.4 p.o. at bedtime. 7. Folic acid 1 mg p.o. daily. 8. Furosemide 60 mg p.o. daily. 9. Testosterone. 10. Anusol cream for hemorrhoids. PRESENTING COMPLAINT: Worsening shortness of breath. HISTORY OF PRESENT COMPLAINT: Mr. Borden is a 53-year-old, morbidly obese, gentleman who is known to have diastolic heart failure, coronary artery disease, had a CABG on 06/12/2019 in [place]. Came to the emergency room because of shortness of breath. Of note, Mr. Borden was just recently discharged from the hospital with recommendation on a heart healthy diet. Unfortunately, he does not seem to be compliant with his diet. He came back because of shortness of breath. Chest x-ray did reveal that he was having some congestion in the lung. He was admitted for mild CHF exacerbation. HOSPITAL COURSE: During the hospital course, Mr. Borden was started on IV diuretics. He did have adequate urine output. He was evaluated by cardiology. Dr. Liz thought that he could be discharged the same day. The patient was given another day for diuretic therapy. This morning, he feels a lot better. No more shortness of breath. He is saturating 99% on room air. His vitals are stable with a blood pressure of 117/64, pulse of 70, respirations of 15, temperature is 98.3 degrees. The patient does not have any more signs of any congestion so we think he is stable to be discharged. All the discharge instructions have been discussed with him. Specifically, we stressed the need of medication compliance as well as dietary modifications. Time spent for discharge is 35 minutes. cc: Chace Magallanes MD
== END 2019-07-26 13:08 | disposition home or self-care (01) ==
LOC: SUPCPDRO → 3N 22:07 → ED 22:07 → SUATTDRO 07-25 02:57
PROVIDERS: ATTEND Internal Medicine